=== PATIENT | male | born 1985 | race Caucasian/White ===

== ENCOUNTER → 2021-11-02 17:03 | Outpatient (BNVA) | payer OTHER, SELFPAY | PROVIDERS: Family Provider Family Medicine; Visit Provider Registered Nurse Neonatal Intensive Care | DX: Z20.822 Contact with and (suspected) exposure to COVID-19 (principal) | CPT/HCPCS: 87635 ==

== ENCOUNTER → 2022-07-20 10:20 | Outpatient (BNVA) | payer BC, SELFPAY | PROVIDERS: Family Provider Family Medicine; PCP Family Medicine; Visit Provider Family Medicine | DX: R53.83 Other fatigue (principal); R79.89 Other specified abnormal findings of blood chemistry; Z11.59 Encounter for screening for other viral diseases; Z11.4 Encounter for screening for human immunodeficiency virus [HIV] | CPT/HCPCS: 80053; 80061; 84402; 84443; 85025; 86803; 87806 ==

== ENCOUNTER 2023-01-27 20:00 | Outpatient (CLI) | payer BC, SELFPAY | END 2023-01-27 20:01 | disposition home or self-care (01) | LOC: SLEEP 01-28 05:04 | PROVIDERS: Family Provider Family Medicine; PCP Family Medicine; Visit Provider Family Medicine | DX: R40.0 Somnolence (principal); R06.83 Snoring; R53.82 Chronic fatigue, unspecified; G47.33 Obstructive sleep apnea (adult) (pediatric) | CPT/HCPCS: 95810 ==

== ENCOUNTER → 2023-09-21 09:31 | Outpatient (BNVA) | payer BC, SELFPAY | PROVIDERS: Family Provider Family Medicine; PCP Family Medicine; Visit Provider Family Medicine | DX: R79.89 Other specified abnormal findings of blood chemistry (principal); R53.83 Other fatigue; G47.00 Insomnia, unspecified; Z12.5 Encounter for screening for malignant neoplasm of prostate | CPT/HCPCS: 80053; 80061; 84403; 84443; 85025; G0103 ==

== ENCOUNTER 2023-11-28 11:54 | Emergency (ER) | payer BC, SELFPAY ==
[2023-11-28 12:33] VITALS: BP 171/80; PULSE 103; RESP 16; TEMP 36.7; O2SAT 98; BMI 36.5
--- NOTE | 2023-11-28 13:02 | XRR_ITS ---
PROCEDURE INFORMATION: Exam: XR Right Shoulder Exam date and time: 11/28/2023 1:05 PM Age: 37 years old Clinical indication: Pain; Shoulder; Right TECHNIQUE: Imaging protocol: Radiologic exam of the right shoulder. Views: 2 or more views. COMPARISON: No relevant prior studies available. FINDINGS: Bones/joints: No acute fracture or dislocation. Joint spaces are preserved. Soft tissues: Normal. XR/XR shoulder RT min 2V* [id number] IMPRESSION: No acute fracture or dislocation.
--- NOTE | 2023-11-28 14:01 | W.ED.EXTPRO ---
HPI - Extremity Problem General: Chief complaint: Extremity Injury, Upper Stated complaint: back pain Time Seen by Provider: 11/28/23 13:02 Source: patient Mode of arrival: ambulatory History of Present Illness: 37-year-old male presents emergency room with complaint of right shoulder pain began 3 days ago and is worsened over the weekend. He has tried hot showers massage heating pad mild relief worse with abduction no shortness of breath no trauma he states it began after he woke up when he slept on it kind of oddly. No previous injury to the left shoulder. MD Complaint: joint pain Onset (ago): day(s) (3) Pain Consistency: constant Location: right (Shoulder) and upper extremity Quality: sharp Relieving factors: nothing Exacerbating factors: nothing Associated symptoms: Deny arthralgias, chest pain, fever(s), myalgias, rash or short of breath Review of Systems Const: Denies: fever(s) Card: Denies: chest pain Skin/Breast: Denies: rash PFSH ED PFSH: Family History Grandfather Cancer Prostate Denies family history of Diabetes CAD (coronary artery disease) Clotting disorder Dementia Hyperlipidemia Psychiatric illness Chronic kidney disease (CKD) Suicide Anesthesia complication Bleeding disorder Family history of premature coronary artery disease Lung disease Hypertension Stroke Social History Smoking and tobacco/nicotine status: never used tobacco/nicotine Alcohol intake: current Alcohol intake frequency: holidays/special occasions only Substance/Drug Use: never Adopted: No Caregiver/support person: No Lives independently: No Household members: spouse and children Housing: House Marital status: Number of children: 2 Highest education level completed: High School Graduate service: No Current occupational status: employed Current occupational exposures/hazards: Yes Physical Exam Const: GENERAL APPEARANCE: cooperative and comfortable ORIENTATION/CONSCIOUSNESS: Yes awake, Yes oriented to person, Yes oriented to place and Yes oriented to time HENMT: COMMON NORMALS: normocephalic, atraumatic and hearing grossly normal bilaterally HEAD & SCALP: normocephalic and atraumatic Resp: COMMON NORMALS: normal respiratory effort, No retractions, No use of accessory muscles and clear to auscultation bilaterally AUSCULTATION: clear to auscultation bilaterally Cardio: COMMON NORMALS: regular rate, regular rhythm and No murmurs present (Cardio) RATE: regular rate RHYTHM: regular rhythm Extremity: COMMON NORMALS: normal to inspection, capillary refill normal, no clubbing, cyanosis or edema, no calf tenderness and no pedal edema OTHER: Pain with abduction positive impingement sign Neuro: SENSORIUM/ORIENTATION: Yes oriented to person, Yes oriented to place and Yes oriented to time Skin: COMMON NORMALS: no rashes or lesions noted GENERAL SKIN EXAM: no rashes or lesions noted Course Vital Signs: Vital signs: Vital Signs Temperature 98.0 F 11/28/23 12:33 Pulse Rate 103 H 11/28/23 12:33 Respiratory Rate 16 11/28/23 12:33 Blood Pressure 171/80 11/28/23 12:33 Pulse Oximetry 98 11/28/23 12:33 Oxygen Delivery Me thod Room Air 11/28/23 12:33 MDM - Extremity (Nontraumatic) Medical Decision Making X-ray negative mildly positive acute impingement sign given his history suspect he has mild bursitis probably positional from sleeping. He can use anti-inflammatories is not improving follow-up with primary care for further evaluation and referral as felt appropriate Lab Data Radiology Impressions Shoulder X-Ray 11/28/23 13:02 IMPRESSION: No acute fracture or dislocation. All radiology interpretation(s) finalized by discharge Discharge Plan Discharge Patient Disposition: Home Clinical Impression: Pain in right shoulder Condition: Stable Prescriptions: New diclofenac sodium 75 mg tablet,delayed release (DR/EC) 75 mg PO Q12H PRN (Reason: pain) Qty: 20 0RF No Action (DME) Syringes, needles, drawing needles, alcohol prep pads. See Rx Instructions .Route .MEDSUPPLY Qty: 1 0RF Rx Instructions: Please issue 3ml syringes, 25g 1.5inch needles and 18g needles for drawing up medications (100 each) testosterone cypionate 200 mg/mL oil 200 mg SUBCUT .q10 days 30 Days Qty: 3 5RF Rx Instructions: Inject 1 ml intramuscularly every 10 days. Discharge Orders: Discharge ED (Routine); Ordered 11/28/23 Ordered By: Davion Cesar Referrals: Ady Bernstein, [Primary Care Provider] - Discharge Diet: Usual diet Discharge Activity: Limit activity as instructed Patient Instructions: Opioid Safety, Pain Management Activity Restrictions/Additional Instructions: Thank you for choosing [facility] for your healthcare needs today. Please realize this is an emergency room and that we are providing you with a medical screening exam and this may not be complete and all inclusive of all the testing and or work up that you may need to determine your ailment or severity of your illness. It is very important that you follow up as instructed or that you return to the Emergency Department should you have concerns or if your condition changes or worsens in any way. You are seen today for right shoulder pain. No acute findings on the plain x-ray. You can use anti-inflammatories as needed if the pain persist follow-up with your primary care doctor they can reevaluate and decide if further advanced imaging or referral to orthopedics is necessary. Coding Level of Care Code ED Blister Packing Machine Tender for Collin Hector
== END 2023-11-28 14:33 | disposition home or self-care (01) ==
PROVIDERS: Emergency Provider Family Medicine; PCP Family Medicine
DX: M25.511 Pain in right shoulder (principal)
CPT/HCPCS: 73030; 99283

== ENCOUNTER → 2023-12-27 09:48 | Outpatient (BNVA) | payer BC, SELFPAY | PROVIDERS: PCP Family Medicine; Visit Provider Family Medicine | DX: R79.89 Other specified abnormal findings of blood chemistry (principal); E29.1 Testicular hypofunction | CPT/HCPCS: 84403; 85027 ==

== ENCOUNTER → 2025-01-24 09:41 | Outpatient (BNVA) | payer BC, SELFPAY | PROVIDERS: PCP Family Medicine; Visit Provider Family Medicine | DX: E29.1 Testicular hypofunction (principal); Z68.41 Body mass index [BMI] 40.0-44.9, adult | CPT/HCPCS: 80053; 80061; 84403; 84439; 84443; 85025 ==